=== PATIENT | female | born 2000 | race Native Hawaiian/Other Pacific Islander ===

== ENCOUNTER 2020-12-19 22:06 | Inpatient (IN) | payer MEDICAID ==
[2020-12-19] MEDS ORDERED: LACTATED RINGERS 1,000 ML IV SCH ×2 (23:00→23:30)
[2020-12-19] MEDS ORDERED: NalbUPHINE 10 MG/1 ML INJ IV PRN (23:25)
[2020-12-19] MEDS ORDERED: ePHEDrine SULFATE 50 MG/1 ML INJ IV PRN (23:25)
[2020-12-19] MEDS ORDERED: fentaNYL 100 MCG/2 ML INJ IV PRN (23:25)
[2020-12-19] MEDS ORDERED: OXYTOCIN 10 UNIT/1 ML INJ IM PRN (23:25)
[2020-12-19] MEDS ORDERED: MINERAL OIL 30 ML ORAL LIQD PO PRN (23:25)
[2020-12-19] MEDS ORDERED: TERBUTALINE 1 MG/1 ML INJ SUB-Q PRN (23:25)
[2020-12-19] MEDS ORDERED: BUTORPHANOL 2 MG/1 ML INJ IV PRN ×2 (23:25)
[2020-12-19] MEDS ORDERED: LIDOCAINE (2%) 20 MG/1 ML VIAL 20 ML MDV INFILTRATI ONE (23:25)
[2020-12-19] MEDS ORDERED: METHYLERGONOVINE MALEATE 0.2 MG/ML VIAL IM PRN (23:25)
[2020-12-19] MEDS ORDERED: miSOPROStol 200 MCG TAB PR PRN (23:25)
[2020-12-19] MEDS ORDERED: ACETAMINOPHEN 325 MG TAB PO PRN (23:25)
[2020-12-19] MEDS ORDERED: AMPICILLIN/NS 2 GM/100 ML 2 GM/100 ML BAG IV ONE (23:45)
[2020-12-19] MEDS ORDERED: OXYTOCIN DRIP 30 UNITS/500 ML BAG IV SCH (23:45)
[2020-12-20 00:45] LABS: Hematocrit 32.5 % (30.3-42.9); Hemoglobin 11.4 gm/dl (10.1-14.3); Mean Corpuscular HGB Conc 35 % (30-34); Mean Corpuscular Volume 90 fl (79-97); Platelet Count 188 K/mm3 (140-440); Red Blood Count 3.61 M/mm3 (3.65-5.03); Red Cell Distribution Width 12.4 % (13.2-15.2)
[2020-12-20 02:03] LABS: Bilirubin,Urine NEG (Negative); Blood,Urine NEG (Negative); Color,Urine Yellow (Yellow); Mucus,Urine FEW /HPF; Protein,Urine <15 mg/dL mg/dL (Negative)
[2020-12-20] MEDS: AMPICILLIN/NS 1 GM/50 ML 1 GM/50 ML BAG IV SCH ×2 (05:22→08:53)
[2020-12-20] MEDS ORDERED: LIDOCAINE (2%) 20 MG/1 ML VIAL 20 ML MDV INFILTRATI ONE (08:25)
--- NOTE | 2020-12-20 08:53 | History and Physical Report ---
History of Present Illness Date of examination: 12/20/20 Date of admission: 12/19/20 Chief complaint: Painful ctxs History of present illness: 20yo, @ 37.4 wks, initiated care with [facility] at 9.4 wks gestation. has been complicated by Chlamydia (YANELIS negative - 07/05/20). Presents to [facility] with reports of frequent painful ctxs for a couple of hours. Reports +FM. Denies any VB or LOF. Went on to have cervical change and was admitted. Labs: A+, antibody negative; rubella immune; VDRL negative; HIV negative; HBsAg negative; HSV2 negative; GC/Trich negative; 1 hr gtt - 75; GBS -negative. Past History Past Medical History: no pertinent history Past Surgical History: no surgical history [employer] History: chlamydia Family/Genetic History: none Social history: single, lives with family, full code. denies: smoking, alcohol abuse, prescription drug abuse, IV drug use - Obstetrical History Expected Date of Delivery: 01/06/21 Actual Gestation: 37 Week(s) 4 Day(s) : 2 Para: 1 Hx # Term Pregnancies: 1 Number of Pregnancies: 0 Spontaneous Abortions: 0 Induced : 0 Number of Living Children: 1 #1 Gender: Male year: 2,[birth year] Birthweight: 3.033 kg Method of Delivery: Vaginal Complications: none Medications and Allergies Allergies Allergy/AdvReac Type Severity Reaction Status Date / Time No Known Allergies Allergy Unverified 11/14/15 12:14 Home Medications Medication Instructions Recorded Confirmed Last Taken Type Pnv Plus Multivit Tab 1 mg PO DAILY 12/19/20 12/19/20 12/19/20 08:00 History Active Meds: Active Medications Acetaminophen (Acetaminophen 325 Mg Tab) 650 mg PO Q4H PRN PRN Reason: Pain, Mild (1-3) Butorphanol Tartrate (Butorphanol 2 Mg/1 Ml Inj) 2 mg IV Q2H PRN PRN Reason: Pain , Severe (7-10) Last Admin: 12/20/20 07:33 Dose: 2 mg Documented by: Butorphanol Tartrate (Butorphanol 2 Mg/1 Ml Inj) 1 mg IV Q2H PRN PRN Reason: Pain, Moderate(4-6) LABOR PAIN Ephedrine Sulfate (Ephedrine Sulfate 50 Mg/1 Ml Inj) 10 mg IV Q2M PRN PRN Reason: Hypotension Fentanyl (Fentanyl 100 Mcg/2 Ml Inj) 100 mcg IV Q2H PRN PRN Reason: Pain,Severe (7-10) LABOR PAIN Lactated Ringer's (Lactated Ringers) 1,000 mls @ 125 mls/hr IV DIRECT CB Last Admin: 12/20/20 00:28 Dose: 125 mls/hr Documented by: Oxytocin/Sodium Chloride (Pitocin/Ns 30 Unit/500ml) 30 units in 500 mls @ 40 mls/hr IV TITR CB; Protocol Ampicillin Sodium (Ampicillin/Ns 1 Gm/50 Ml) 1 gm in 50 mls @ 100 mls/hr IV Q4H CB; Protocol Last Admin: 12/20/20 05:22 Dose: 100 mls/hr Documented by: Methylergonovine Maleate (Methylergonovine Maleate 0.2 Mg/Ml Vial) 0.2 mg IM ONCE PRN PRN Reason: Uterine Bleeding Mineral Oil (Mineral Oil 30 Ml Oral Liqd) 30 ml PO QHS PRN PRN Reason: Constipation Misoprostol (Misoprostol 200 Mcg Tab) 800 mcg LA ONCE PRN PRN Reason: Uterine Bleeding Nalbuphine HCl (Nalbuphine 10 Mg/1 Ml Inj) 10 mg IV Q2H PRN PRN Reason: Pain, Moderate (4-6) Oxytocin (Oxytocin 10 Unit/1 Ml Inj) 10 unit IM ONCE PRN PRN Reason: Uterine Bleeding Terbutaline Sulfate (Terbutaline 1 Mg/1 Ml Inj) 0.25 mg SUB-Q ONCE PRN PRN Reason: Hyperstimulation/Hypertonicity Review of Systems All systems: negative Genitourinary: contractions - Vital Signs Vital signs: Vital Signs Temp Pulse Resp BP 97.6 F 80 18 102/64 12/19/20 22:35 12/19/20 22:35 12/19/20 22:35 12/19/20 22:35 Temp Pulse Resp BP Pulse Ox 97.9 F 71 18 95/50 97 12/20/20 07:42 12/20/20 08:41 12/20/20 07:42 12/20/20 08:41 12/20/20 05:20 - Physical Exam Breasts: Positive: normal Cardiovascular: Regular rate Lungs: Positive: Normal air movement Abdomen: Positive: other (gravid) Genitourinary (Female): Positive: normal external genitalia, normal perenium Vagina: Positive: normal moisture Uterus: Positive: enlarged (S=D) Deep Tendon Reflex Grade: Normal +2 - Obstetrical FHR: category 1 Uterine Contraction Monitor Mode: External Cervical Dilatation: 6.5 (vertex) Cervical Effacement Percentage: 70 station: -1 Uterine Contraction Duration: 3-4 Uterine Contraction Pattern: Irregular Uterine Tone Measurement Phase: Resting Uterine Contraction Intensity: Moderate Results Result Diagrams: 12/20/20 00:01 Abnormal lab results 12/20/20 Range/Units 00:01 WBC 11.8 H (4.5-11.0) K/mm3 RBC 3.61 L (3.65-5.03) M/mm3 MCHC 35 H (30-34) % RDW 12.4 L (13.2-15.2) % All other labs normal. Assessment and Plan - Patient Problems (1) Active labor Current Visit: No Status: Acute Plan to address problem: AROM @ 0839, clear fluids, tolerated well Pain meds as desired per orders Anticipate
--- NOTE | 2020-12-20 10:09 | Procedure Note ---
OB Delivery Note - Delivery Date of Delivery: 12/20/20 (0913) Surgeon: JEANIE LOW (CNM) Estimated blood loss: 300cc - Vaginal Delivery presentation: vertex Delivery position: OA (ARACELI) Intrapartum events: none Delivery induction: none Delivery augmentation: rupture of membranes (AROM @ 0839, clear) Delivery monitor: external FHT, external uterine Route of delivery: Delivery placenta: spontaneous (0951, harmon) Delivery cord: 3 umbilical vessels Episiotomy: none Delivery laceration: 1st degree (no repair required, hemostasis maintained) Anesthesia: none Delivery comments: of viable, crying male infant placed directly to maternal abdomen. Cord double clamped, cut by MGM after cessation of pulsation. Placenta spontaneously delivered, disposed per hospital policy. Uterus firm @ U-3. Perineum with 1st degree laceration, no repair required. Mother and baby safe, stable and left in care of RN. - A at 1 minute: 9 at 5 minutes: 9 Infant Gender: Male (Weight: 3340 gms (7lbs 6ozs))
[2020-12-20] MEDS ORDERED: diphenhydrAMINE 25 MG CAP PO PRN (11:00)
[2020-12-20] MEDS ORDERED: PROMETHAZINE 25 MG TAB PO PRN (11:00)
[2020-12-20] MEDS ORDERED: IBUPROFEN 600 MG TAB PO SCH (11:00)
[2020-12-20] MEDS ORDERED: WITCH HAZEL/ GLYCERIN PAD TP PRN (11:00)
[2020-12-20] MEDS ORDERED: LANOLIN/ZINC/DIMETHICONE (LANSINOH) 7 GM TP PRN (11:00)
[2020-12-20] MEDS ORDERED: ONDANSETRON 4 MG/2 ML INJ IV PRN (11:00)
[2020-12-20 20:54] LABS: Hemoglobin 11.1 gm/dl (10.1-14.3)
[2020-12-20] MEDS ORDERED: MAGNESIUM HYDROXIDE (MOM) ORAL LIQD UDC PO PRN (22:00)
[2020-12-21] MEDS: oxyCODONE /ACETAMINOPHEN 5-325MG TAB PO PRN ×2 (02:26→08:04)
--- NOTE | 2020-12-21 08:16 | Progress Note ---
Assessment and Plan - Patient Problems (1) Vaginal delivery Current Visit: Yes Status: Acute Plan to address problem: Patient doing well Discharge home Subjective - Subjective Date of service: 12/21/20 Interval history: Patient is currently without complaints. Patient reports: appetite normal, voiding normally, pain well controlled Badger: doing well Objective - Vital Signs Latest vital signs: Vital Signs Temp Pulse Resp BP Pulse Ox 12/21/20 01:35 98.0 F 90 20 95/56 96 12/20/20 20:37 98.8 F 78 20 92/51 97 12/20/20 16:41 98.5 F 82 20 101/55 98 12/20/20 16:26 20 12/20/20 12:01 98.1 F 73 20 99/55 96 12/20/20 10:50 64 97/54 12/20/20 10:35 74 91/54 12/20/20 10:20 71 90/52 12/20/20 10:05 80 95/53 12/20/20 09:41 75 112/75 12/20/20 08:41 71 95/50 Intake and Output 12/20/20 12/21/20 12/21/20 22:59 06:59 14:59 Intake Total 480 240 Output Total 500 Balance -20 240 Intake: Oral 480 240 Output: Urine 500 Void 500 Other: Total, Intake Amount 240 240 Total, Output Amount 500 Voiding Method Toilet # Voids Void 1 1
--- NOTE | 2020-12-21 08:17 | Discharge Summary ---
Providers - Providers Date of Admission: 12/19/20 23:26 Date of discharge: 12/21/20 Attending physician: HELEN COBB 12/20/20 10:04 Consult to Health Services Information Specialist [CONS] Routine Reason For Exam: assistance with , SNS Primary care physician: HELEN COBB Hospitalization Reason for admission: active labor Delivery: Discharge diagnosis: IUP at term delivered Hospital course: Patient admitted in active labor. The patient had a normal spontaneous vaginal delivery. course was uneventful. Condition at discharge: Good Disposition: DC-01 TO HOME OR SELFCARE - Discharge Diagnoses (1) Vaginal delivery Status: Acute Plan - Discharge Medications Prescriptions: Ibuprofen [Motrin] 800 mg PO Q8HR PRN #30 tablet PRN Reason: Pain , Severe (7-10) HYDROcodone/APAP 5-325 [[place] 5/325] 1 each PO Q6HR PRN #15 tablet PRN Reason: Pain - Provider Discharge Summary Activity: no sex for 6 weeks, no heavy lifting 4 weeks, no strenuous exercise Diet: routine Instructions: routine Additional instructions: [] Smoking cessation referral if applicable(refer to patient education folder for contact #) [] Refer to [facility] Booklet Call your doctor immediately for: * Fever > 100.5 * Heavy vaginal bleeding ( >1 pad per hour) * Severe persistent headache * Shortness of breath * Reddened, hot, painful area to leg or breast * Schedule visit in 4 weeks - Follow up plan
[2020-12-21] MEDS ORDERED: PRENATAL VIT27-FE FUMARATE-FOLIC ACID VIT TAB PO SCH (10:00)
[2020-12-21 12:21] VITALS: BP 97/52
== END 2020-12-21 12:30 | disposition home or self-care (01) | DRG 775 ==
LOC: TRG 22:06 → APU 22:12 → LD 23:26 → OBSVTOIN 23:26 → TRG 23:26 → LD 23:51 → OB 12-20 11:30
PROVIDERS: ADMIT Obstetrics & Gynecology; ATTEND Obstetrics & Gynecology
PROC: 10E0XZZ Delivery of Products of Conception, External Approach (ICD-10-PCS; principal; 2020-12-20)
PROC: 10907ZC Drainage of Amniotic Fluid, Therapeutic from Products of Conception, Via Natural or Artificial Opening (ICD-10-PCS; 2020-12-20)
DX: O70.0 First degree perineal laceration during delivery (principal); Z3A.37 37 weeks gestation of pregnancy; Z37.0 Single live birth; Z20.822 Contact with and (suspected) exposure to COVID-19
CPT/HCPCS: 36415; 81001; 85014; 85018; 85027; 86592; 86850; 86900; 86901; 96360; 96361; 96374; 99211; G0378; A6250; G0463; J0290; J0595; J7120; U0003